=== PATIENT | male | born 1995 | race Two or more races ===

== ENCOUNTER 2020-05-20 12:35 | Emergency (ER) | payer OTHER, SELFPAY ==
[2020-05-20 12:47] VITALS: BP 138/80; PULSE 97; RESP 18; TEMP 37.4; O2SAT 98; BMI 36.9
--- NOTE | 2020-05-20 12:55 | XR_ITS ---
EXAMINATION: XR CHEST CLINICAL INFORMATION: Coughing. Question pneumonia. COMPARISON: None TECHNIQUE: Frontal view of the chest was obtained. FINDINGS: The lungs are well expanded. There is no focal consolidation, edema, or effusion. No pneumothorax. The cardiomediastinal silhouette is within normal limits. No acute osseous abnormality. XR/XR chest 1V IMPRESSION: Clear lungs.
--- NOTE | 2020-05-20 13:07 | ED_ITS ---
HPI - General Adult General Chief complaint: General Medical <ONEIDA Seals Last Filed: 05/20/20 16:04> Stated complaint: SOB,FLU LIKE SYMPTOMS <ONEIDA Seals Last Filed: 05/20/20 16:04> Time Seen by Provider: 05/20/20 12:44 <ONEIDA Seals Last Filed: 05/20/20 16:04> Source: patient <ONEIDA Seals Last Filed: 05/20/20 16:04> Mode of arrival: ambulatory <ONEIDA Seals Last Filed: 05/20/20 16:04> Limitations: no limitations <ONEIDA Seals Last Filed: 05/20/20 16:04> History of Present Illness HPI narrative: Patient presents to ED for body aches, cough, and chills past Three days. Patient states he has been exposed to coworkers at [employer] were positive for the COVID-19 virus. Patient states he had slight chest tightness yesterday that resolved after using albuterol pump. 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 Patient presents denies any itching, shortness of breath, sensation of throat closing, or rash. <ONEIDA Seals Last Filed: 05/20/20 16:04> Related Data Allergies/adverse reactions: Allergies Allergy/AdvReac Type Severity Reaction Status Date / Time No Known Allergies Allergy Verified 05/20/20 12:55 <ONEIDA Seals Last Filed: 05/20/20 16:04> Review of Systems Review of Systems: Yes all other systems are reviewed and are negative <ONEIDA Seals Last Filed: 05/20/20 16:04> Constitutional: Constitutional: Reports as per HPI, Reports no additional constitutional complaints, Reports body ache(s), Reports chills, Reports fatigue and Reports headache(s) <ONEIDA Seals Last Filed: 05/20/20 16:04> Eyes: Eyes: Reports as per HPI and Reports no additional eye complaints <ONEIDA Seals Last Filed: 05/20/20 16:04> ENT: Reports system reviewed and no additional complaints, except as documented and Reports headache(s) <ONEIDA Seals Last Filed: 05/20/20 16:04> Cardiovascular: Cardiovascular: Reports as per HPI, Reports no additional cardiovascular complaints, Denies chest pain and Denies orthopnea <ONEIDA Seals Last Filed: 05/20/20 16:04> Respiratory: Comments: Cough <ONEIDA Seals Last Filed: 05/20/20 16:04> Gastrointestinal: Gastrointestinal: Reports as per HPI and Reports no additional gastrointestinal complaints <ONEIDA Seals Last Filed: 05/20/20 16:04> Genitourinary: Genitourinary: Reports no additional male genitourinary complaints and Reports as per HPI <ONEIDA Seals Last Filed: 05/20/20 16:04> Musculoskeletal: Musculoskeletal: Reports no additional musculoskeletal complaints and Reports as per HPI <ONEIDA Seals Last Filed: 05/20/20 16:04> Neurologic: Reports system reviewed and no additional complaints, except as documented, Reports as per HPI and Reports headache(s) <ONEIDA Seals Last Filed: 05/20/20 16:04> Psychiatric: Psychiatric: Reports no additional psychiatric complaints and Reports as per HPI <ONEIDA Seals Last Filed: 05/20/20 16:04> [facility] Past Medical History Medical History: Medical History (Updated 05/21/20 @ 00:00 by Cristian Garcia) Asthma <ONEIDA Seals Last Filed: 05/20/20 16:04> Social History Social History: Social History Alcohol intake: current Alcohol intake frequency: holidays/special occasions only Smoked in Last 30 Days: No Use of substances other than those prescribed or required for medical reasons: No Advance Directives: No Advance Directives Information Provided: No <ONEIDA Seals Last Filed: 05/20/20 16:04> Physical Exam Vital Signs: Vital Signs: Last Vital Signs Temp 98.9 F 05/20/20 14:46 Pulse 89 05/20/20 14:46 Resp 18 05/20/20 14:46 BP 108/70 05/20/20 14:46 Pulse Ox 98 05/20/20 14:46 Body Mass Index 36.9 <ONEIDA Seals - Last Filed: 05/20/20 16:04> Vital Signs: Last Vital Signs Temp 98.9 F 05/20/20 14:46 Pulse 89 05/20/20 14:46 Resp 18 05/20/20 14:46 BP 108/70 05/20/20 14:46 Pulse Ox 98 05/20/20 14:46 Body Mass Index 36.9 <Thony Maldonado MD - Last Filed: 05/26/20 15:57> Const: General: cooperative, healthy appearing, comfortable, no acute distress, well developed and awake <ONEIDA Seals - Last Filed: 05/20/20 16:04> Orientation/consciousness: patient oriented x3 <ONEIDA Seals - Last Filed: 05/20/20 16:04> HENMT: Head: Yes normal to inspection and Yes No palpable skull fracture present <ONEIDA Seals Last Filed: 05/20/20 16:04> Mouth: Normal oral and palatal mucosa present and lip normal <ONEIDA Seals Last Filed: 05/20/20 16:04> Throat: Yes posterior oropharynx normal, Yes tonsils normal and Yes uvula midline <ONEIDA Seals - Last Filed: 05/20/20 16:04> Eyes: General: appearance normal, both eyes and all related structures <ONEIDA Seals - Last Filed: 05/20/20 16:04> Visual Pritchett: normal visual pritchett by confrontation <ONEIDA Seals Last Filed: 05/20/20 16:04> Neck: Neck: Yes normal visual inspection, Yes full ROM, Yes no lymphadenopathy and Yes no meningeal signs <ONEIDA Seals - Last Filed: 05/20/20 16:04> Chest: Chest palpation & inspection: normal inspection of the chest, normal palpation of entire chest wall and no localized rib tenderness <ONEIDA Seals - Last Filed: 05/20/20 16:04> Resp: Effort & Inspection: normal respiratory effort and not able to speak in complete sentences <ONEIDA Seals Last Filed: 05/20/20 16:04> Auscultation: clear to auscultation bilaterally, no crackles, no rales, no rhonchi and no wheezes <ONEIDA Seals - Last Filed: 05/20/20 16:04> Cardio: Jugular venous distension: no JVD <ONEIDA Seals Last Filed: 05/20/20 16:04> Heart sounds: S1 normal heart sound present and S2 normal heart sound present <ONEIDA Seals - Last Filed: 05/20/20 16:04> GI: Inspection: Yes normal to inspection and No abdominal wall ecchymosis <ONEIDA Seals - Last Filed: 05/20/20 16:04> Palpation (GI): Soft to palpation, not firm, nontender, no guarding and not rigid <ONEIDA Seals - Last Filed: 05/20/20 16:04> : General: No CVA tenderness and Yes no CVA tenderness <ONEIDA Seals - Last Filed: 05/20/20 16:04> Back/Spine/Pelvis: Back: no CVA tenderness, No CVA tenderness and No back tenderness <ONEIDA Seals - Last Filed: 05/20/20 16:04> Skin: General skin exam: no rashes or lesions noted <ONEIDA Seals - Last Filed: 05/20/20 16:04> Neuro: General: patient oriented x3, no meningeal signs and CN's II-XI intact bilaterally <ONEIDA Seals - Last Filed: 05/20/20 16:04> Cranial nerves: Yes CN's II-XII intact bilaterally <ONEIDA Seals - Last Filed: 05/20/20 16:04> Extrem: General: Yes normal to inspection and Yes full ROM <ONEIDA Seals - Last Filed: 05/20/20 16:04> Psych: Appearance: grossly normal, well kempt and not disheveled <ONEIDA Seals Last Filed: 05/20/20 16:04> Course Course Course Narrative: patient will have chest x-ray done and COVID swab sent. Patient vital signs are stable. History physical exam does not indicate PE. <ONEIDA Seals Last Filed: 05/20/20 16:04> I have reviewed the chart <Thony Maldonado MD - Last Filed: 05/26/20 15:57> Reevaluation(s) Reevaluation #1: Chest x-ray normal. Patient educated on self-isolation. Patient informed follow-up With PCP <ONEIDA Seals - Last Filed: 05/20/20 16:04> Time: 15:04 <ONEIDA Seals Last Filed: 05/20/20 16:04> Medical Decision Making MDM Narrative Medical decision making narrative: viral syndrome <ONEIDA Seals - Last Filed: 05/20/20 16:04> Lab Data Labs: Lab Results 05/20/20 Range/Units 12:57 COVID-19 PCR NOT DETECTED (NOT DETECTED) <ONEIDA Seals - Last Filed: 05/20/20 16:04> Lab Results 05/20/20 Range/Units 12:57 COVID-19 PCR NOT DETECTED (NOT DETECTED) <Thony Maldonado MD - Last Filed: 05/26/20 15:57> Discharge Plan Discharge Clinical Impression: Acute viral syndrome <ONEIDA Seals Last Filed: 05/20/20 16:04> Patient Disposition: Home, Self-Care <ONEIDA Seals Last Filed: 05/20/20 16:04> Instructions: Viral Syndrome (ED) <ONEIDA Seals Last Filed: 05/20/20 16:04> Additional Instructions: return to the ED for chest pain, shortness of breath, swelling of tongue, swelling of lips, calf pain, coughing up blood, swelling of legs, redness, fever, weakness, or any other concerning symptoms. Please follow-up with the PCP. Recommend 14 days self-isolation if COVID test come back positive <ONEIDA Seals - Last Filed: 05/20/20 16:04> Interventions: ED Discharge Assessment Last Done: 05/20/20 15:09 <ONEIDA Seals Last Filed: 05/20/20 16:04> Discharge Date/Time: 05/20/20 15:22 <ONEIDA Seals Last Filed: 05/20/20 16:04> Print Language: Danish <ONEIDA Seals Last Filed: 05/20/20 16:04>
[2020-05-20] MEDS: Acetaminophen 325 MG TABLET 650 MG PO (13:08)
[2020-05-20 14:46] VITALS: BP 108/70; PULSE 89; RESP 18; TEMP 37.2; O2SAT 98
--- NOTE | 2020-05-20 14:49 | PC.NURSE ---
patient a&ox3, vss, pt speaking in full sentences, no sob/duran noted at this time, pt currently watching tv, will continue to monitor
== END 2020-05-20 15:22 | disposition home or self-care (01) ==
PROVIDERS: Physician Assistant; Emergency Provider Emergency Medicine
DX: R05 Cough (principal); M79.10 Myalgia, unspecified site; Z20.828 Contact with and (suspected) exposure to other viral communicable diseases
CPT/HCPCS: 71045; 99284; U0003